=== PATIENT | female | born 1980 | race Caucasian/White ===

== ENCOUNTER 2016-03-07 11:25 | Day surgery (SDC) | payer BC ==
[~2016-03-07] VITALS: Ht 165.1 cm; Wt 69.9 kg
[2016-03-07] VITALS (9 sets, daily range): BP systolic 92–112; BP diastolic 56–75; PULSE 76–94; TEMP 98.2
[~2016-03-07 11:25] MED LIST: ADVIL200 MG PO; ALBUTEROL0.09 MG/A1 IH; ALBUTEROL0.83 MG/ML IH; AMOXICILLIN 50500 MG PO; LEXAPRO 10MG10 MG PO; MAXALT10 MG; MOTRIN 800800 MG/TAB PO; NORCO 325 MG-51 TAB PO; PERCOCET 325 MG1 TA2 PO; PROMETHAZINE12.5 M5 PO; PROVENTIL0.09 MG/A1 IH; SINGULAIR 110 MG/TAB PO; TAMIFLU 75MG75 MG PO; ZOFRAN 4MG T4 MG/TAB PO; ZOLOFT 50MG50 MG; ZOMIG2.5 MG PO; amoxicillin PO; lortab PO
[2016-03-07] MEDS ORDERED: MAXALT5 MG PO (11:36)
[2016-03-07 12:15] LABS: BASO # 0.1 (0.0-0.2); BASO % 0.4 % (0.0-2.0); EOS # 0.3 (0.0-0.7); EOS % 2.1 % (0-4.0); GRAN # 9.8 (1.4-6.5); GRAN % 77.6 % (42.2-75.2); HEMATOCRIT 42.7 % (37.0-47.0); HEMOGLOBIN 14.2 g/dl (12.5-16.0); LYMPH # 1.9 (1.2-3.4); LYMPH % 15.2 % (20.0-51.0); MEAN CELL VOLUME 87 fl (80.0-100.0); MEAN CORPUSCULAR HEMOGLOBIN 29 pg (27.0-31.0); MEAN CORPUSCULAR HGB CONC 33 g/dl (33.0-37.0); MEAN PLATELET VOLUME 9.4 fl (7.4-10.4); MONO # 0.6 (0.1-0.6); MONO % 4.5 % (1.7-9.3); PLATELET COUNT 274 K/mm3 (130-400); RED BLOOD COUNT 4.91 M/mm3 (4.10-5.30); REDCELL DISTRIBUTION WIDTH-CV 12.2 % (11.5-14.5); WHITE BLOOD COUNT 12.7 K/mm3 (4.8-10.8)
[2016-03-07 12:22] LABS: PH 7 (5-8); URINE APPEARANCE Clear; URINE BACTERIA Rare /hpf; URINE BILIRUBIN Negative (NEGATIVE); URINE BLOOD Negative (NEGATIVE); URINE COLOR Yellow; URINE GLUCOSE Negative (NEGATIVE); URINE KETONE Negative (NEGATIVE); URINE RBC 0-2 /hpf; URINE UROBILINOGEN Negative (NEGATIVE); URINE WBC 0-2 /hpf
[2016-03-07 12:30] LABS: ADJUSTED CALCIUM 9.3 mg/dL (8.4-10.2); ALBUMIN 4.5 gm/dL (3.5-5.0); BILIRUBIN,TOTAL 1.4 mg/dL (0.0-1.0); C-REACTIVE PROTEIN 4.4 mg/dL (0.0-0.9); CALCIUM 9.7 mg/dL (8.4-10.2); CREATININE, serum 0.69 mg/dL (0.52-1.25); POTASSIUM 3.7 mmol/L (3.4-5.0); TOTAL PROTEIN 8.1 gm/dL (6.4-8.2)
[2016-03-08 01:46] VITALS: BP 97/65; PULSE 85; TEMP 98.2
[2016-03-08 05:17] VITALS: BP 92/55; PULSE 87; TEMP 98.6
[2016-03-08 10:47] VITALS: BP 108/67; PULSE 83; TEMP 97.3
[2016-03-08] MEDS ORDERED: MODERIBA PO (13:15)
[2016-03-08] MEDS ORDERED: MOTRIN 600600 MG/TAB PO (13:16)
== END 2016-03-08 14:45 | disposition home or self-care (01) ==
LOC: COL.ER 11:25 → SDCO 18:09 → SURG 18:10 → SDCO 03-08 14:45
PROVIDERS: Emergency Medicine
DX: K35.80 Unspecified acute appendicitis (principal)
CPT/HCPCS: OP; A9284; J0694; J1100; J1885; J2250; J2405; J2704; J2710; J3010; J7030; J7120; Q9967

== ENCOUNTER 2018-09-30 13:12 | Emergency (ER) | payer BC ==
[~2018-09-30] VITALS: Ht 167.6 cm; Wt 69.5 kg
[~2018-09-30 13:12] MED LIST changes: +MAXALT5 MG PO; +MODERIBA PO; +MOTRIN 600600 MG/TAB PO
[2018-09-30 13:47] VITALS: TEMP 98.4
[2018-09-30 14:02] LABS: COLLECTION METHOD CLEAN CATCH
[2018-09-30 14:10] LABS: MUCOUS Present /lpf; PH 5 (5-8); URINE APPEARANCE Clear; URINE BACTERIA Rare /hpf; URINE BILIRUBIN Negative (NEGATIVE); URINE BLOOD Negative (NEGATIVE); URINE COLOR Yellow; URINE GLUCOSE Negative (NEGATIVE); URINE KETONE 1+ (NEGATIVE); URINE LEUKOCYTE ESTERASE Trace (NEGATIVE); URINE NITRATE Negative (NEGATIVE); URINE PROTEIN(semi-quant) Negative (NEGATIVE); URINE RBC 0-2 /hpf; URINE UROBILINOGEN Negative (NEGATIVE)
[2018-09-30 14:25] LABS: BASO # 0.1 (0.0-0.2); BASO % 0.6 % (0.0-2.0); EOS # 0.3 (0.0-0.7); GRAN # 6.4 (1.4-6.5); GRAN % 63.6 % (42.2-75.2); HEMATOCRIT 38.5 % (37.0-47.0); HEMOGLOBIN 12.5 g/dl (12.5-16.0); LYMPH # 2.8 (1.2-3.4); LYMPH % 27.7 % (20.0-51.0); MEAN CELL VOLUME 87 fl (80.0-100.0); MEAN CORPUSCULAR HEMOGLOBIN 28 pg (27.0-31.0); MEAN CORPUSCULAR HGB CONC 33 g/dl (33.0-37.0); MEAN PLATELET VOLUME 9.8 fl (7.4-10.4); MONO # 0.5 (0.1-0.6); PLATELET COUNT 308 K/mm3 (130-400); RED BLOOD COUNT 4.44 M/mm3 (4.10-5.30); REDCELL DISTRIBUTION WIDTH-CV 12.2 % (11.5-14.5)
[2018-09-30 14:38] LABS: ALANINE AMINOTRANSFERASE 14 U/L (9-52); ALBUMIN 4.2 gm/dL (3.5-5.0); ALKALINE PHOSPHATASE 62 U/L (50-136); ANION GAP 11 mmol/L (7-16); AST,SGOT 20 U/L (15-37); BILIRUBIN,TOTAL 0.7 mg/dL (0.0-1.0); BLOOD UREA NITROGEN 8 mg/dL (7-17); CALCIUM 9.2 mg/dL (8.4-10.2); CARBON DIOXIDE 26 mmol/L (22-30); CHLORIDE 105 mmol/L (98-107); CREATININE, serum 0.61 (0.52-1.25); GLUCOSE 88 mg/dL (74-106); LIPASE 62 U/L (23-300); POTASSIUM 3.7 mmol/L (3.4-5.0); SODIUM 141 mmol/L (137-145); TOTAL PROTEIN 7.1 gm/dL (6.4-8.2)
[2018-09-30 14:39] LABS: C-REACTIVE PROTEIN < 0.5 mg/dL (0.0-0.9)
[2018-09-30] MEDS ORDERED: NORCO 325 MG-51 TAB PO (16:26)
[2018-09-30] MEDS ORDERED: ZOFRAN ODT4 MG PO (16:27)
[2018-09-30 16:36] VITALS: BP 113/87; PULSE 75
== END 2018-09-30 16:36 | disposition home or self-care (01) ==
LOC: COL.ER 13:12
PROVIDERS: Emergency Medicine; Physician Assistant
DX: K80.50 Calculus of bile duct without cholangitis or cholecystitis without obstruction (principal); G43.909 Migraine, unspecified, not intractable, without status migrainosus; J45.909 Unspecified asthma, uncomplicated; F17.210 Nicotine dependence, cigarettes, uncomplicated; Z90.89 Acquired absence of other organs; Z98.51 Tubal ligation status
CPT/HCPCS: J1170; J2405; J7030

== ENCOUNTER → 2018-10-12 | Outpatient (CLI) | payer BC ==
[~2018-10-12] MED LIST changes: +ZOFRAN ODT4 MG PO
== END ==
LOC: COL.RAD 09:14
DX: R19.7 Diarrhea, unspecified (principal); R10.84 Generalized abdominal pain; R14.0 Abdominal distension (gaseous); R10.11 Right upper quadrant pain; R11.0 Nausea
CPT/HCPCS: A9537

== ENCOUNTER → 2019-07-21 | Outpatient (CLI) | payer BC | LOC: BHSO 09:53 | DX: F90.0 Attention-deficit hyperactivity disorder, predominantly inattentive type (principal) ==

== ENCOUNTER → 2019-08-25 | Outpatient (CLI) | payer BC | LOC: BHSO 10:02 | DX: F90.0 Attention-deficit hyperactivity disorder, predominantly inattentive type (principal) ==

== ENCOUNTER → 2019-08-25 | Outpatient (CLI) | payer BC | LOC: MC.RAD 12:30 | DX: N64.4 Mastodynia (principal) | CPT/HCPCS: G0279; G0463 ==